=== PATIENT | female | born 1985 | race Caucasian/White ===

== ENCOUNTER 2021-04-13 10:45 | Emergency (ER) | payer SELFPAY ==
[2021-04-13 11:49] VITALS: BP 155/58; PULSE 91; TEMP 97.8; BMI 38.3
[2021-04-13] MEDS ORDERED: ACETAMINOPHEN 500 MG TABLET (FP) PO ONE (12:12)
[2021-04-13] MEDS ORDERED: ACETAMINOPHEN 500 MG TABLET (FP) ONE (12:15)
== END 2021-04-13 14:21 | disposition home or self-care (01) ==
LOC: JERFT 10:45
DX: S09.90XA Unspecified injury of head, initial encounter (principal); W01.0XXA Fall on same level from slipping, tripping and stumbling without subsequent striking against object, initial encounter
CPT/HCPCS: 70450-TC; 72125-TC; 99284-25